=== PATIENT | male | born 1985 | race African-American/Black ===

== ENCOUNTER 2020-05-06 06:30 | Emergency (ER) | payer OTHER ==
[~2020-05-06] VITALS: Ht 177.8 cm; Wt 93.0 kg
[2020-05-06 06:30] VITALS: BP 112/90
--- NOTE | 2020-05-06 06:30 | NUR ---
PT AZEB ZIMMER, PREBOOK. TAKEN TO CHAIR
--- NOTE | 2020-05-06 06:45 | NUR ---
PATIENT BIB [place] [employer]. PATIENT EXAMINED BY DR. GAMEZ. PATIENT MEDICALLY CLEARED AND RELEASED IN CUSTODY IN STABLE CONDITION. ORIGINAL PRE-BOOK FORM GIVEN TO OFFICER [facility], #[id number].
== END 2020-05-06 06:45 ==
LOC: MED 06:30
DX: M54.9 Dorsalgia, unspecified (principal); R51 Headache; Z02.89 Encounter for other administrative examinations
CPT/HCPCS: 99283